=== PATIENT | female | born 1975 | race American Indian/Alaskan Native ===

== ENCOUNTER 2019-07-17 23:02 | Emergency (ER) | payer SELFPAY ==
[2019-07-17 23:15] VITALS: BP 146/83
[2019-07-17] MEDS ORDERED: predniSONE 20 MG TAB PO ONE (23:26)
[2019-07-17] MEDS ORDERED: IPRATROPIUM/ALBUTEROL SULFATE 3 ML AMPUL.NEB IH ONE (23:26)
--- NOTE | 2019-07-17 23:47 | XRay Report ---
CHEST 2 VIEWS, 07/17/2019 11:39 PM INDICATION: Cough COMPARISON: None FINDINGS: Support devices: None. Heart: The heart is normal in size. Lungs/pleura: The lungs are clear of focal airspace disease or significant pleural effusion. Additional findings: No significant acute abnormality. IMPRESSION: 1. No evidence of acute cardiopulmonary process. Signer Name: Moriah Olvera MD Signed: 07/17/2019 11:43 PM Workstation Name: [id number]
--- NOTE | 2019-07-18 00:03 | Emergency Department Report ---
ED Shortness of Breath HPI - General Chief Complaint: Dyspnea/Respdistress Stated Complaint: DIFFICULTY IN BREATHING Time Seen by Provider: 07/17/19 23:26 Source: patient Mode of arrival: Ambulatory Limitations: No Limitations - History of Present Illness Initial Comments: 43 yo F presents to ED w/ difficulty breathing after inhaling chemical fumes. Pt states she was cleaning her house using a mix of bleach and ammonia. Pt states when she inhaled the fumes, she began coughing uncontrollably. Reports pain with cough. MD Complaint: shortness of breath, cough -: This afternoon Severity: moderate Consistency: constant Improves With: nothing Worsens With: inspiration Context: smoke/fume exposure Associated Symptoms: cough - Related Data Previous Rx's Medication Instructions Recorded Last Taken Type Albuterol Sulfate [Proventil Hfa] 2 puff IH Q4HR PRN #1 hfa.aer.ad 07/18/19 Unknown Rx Benzonatate [Tessalon Perles] 100 mg PO Q8HR PRN #20 capsule 07/18/19 Unknown Rx predniSONE [Deltasone] 50 mg PO QDAY #5 tab 07/18/19 Unknown Rx Allergies Allergy/AdvReac Type Severity Reaction Status Date / Time No Known Allergies Allergy Unverified 07/17/19 23:14 ED Review of Systems ROS: Stated complaint: DIFFICULTY IN BREATHING Other details as noted in HPI Comment: All other systems reviewed and negative Constitutional: denies: fever Respiratory: cough, shortness of breath ED Past Medical Hx - Past Medical History Previous Medical History?: No - Surgical History Past Surgical History?: No - Social History Smoking Status: Current Every Day Smoker - Medications Home Medications: Home Medications Medication Instructions Recorded Confirmed Last Taken Type Albuterol Sulfate [Proventil Hfa] 2 puff IH Q4HR PRN #1 hfa.aer.ad 07/18/19 Unknown Rx Benzonatate [Tessalon Perles] 100 mg PO Q8HR PRN #20 capsule 07/18/19 Unknown Rx predniSONE [Deltasone] 50 mg PO QDAY #5 tab 07/18/19 Unknown Rx ED Physical Exam - General Limitations: No Limitations General appearance: alert, in no apparent distress - Head Head exam: Present: atraumatic, normocephalic - Eye Eye exam: Present: normal appearance - ENT ENT exam: Present: mucous membranes moist - Neck Neck exam: Present: normal inspection - Respiratory Respiratory exam: Present: normal lung sounds bilaterally. Absent: respiratory distress - Cardiovascular Cardiovascular Exam: Present: regular rate, normal rhythm - GI/Abdominal GI/Abdominal exam: Absent: distended - Extremities Exam Extremities exam: Present: normal inspection - Neurological Exam Neurological exam: Present: alert, oriented X3 - Psychiatric Psychiatric exam: Present: normal affect, normal mood - Skin Skin exam: Present: warm, dry, intact, normal color. Absent: rash ED Course Vital Signs 07/17/19 07/18/19 23:06 00:44 Temperature 98.2 F Pulse Rate 97 H Pulse Rate [ 95 H Anterior Bilateral Throughout] Respiratory 18 Rate Respiratory 20 Rate [Anterior Bilateral Throughout] Blood Pressure 146/83 O2 Sat by Pulse 98 Oximetry - Reevaluation(s) Reevaluation #1: 07/18/19 01:00 Pt feeling much better following meds. No resp distress. O2 sats normal. Will d/c home. ED Medical Decision Making - Radiology Data Radiology results: report reviewed, image reviewed - Medical Decision Making 43 yo F w/ cough, dyspnea after inhaling fumes while cleaning. Pt received prednisone and albuterol/atrovent nebs. Feeeling much better at this time. O2 sats normal. CXR unremrakable. Will d/c home w/ prescriptions. Return precautions given. - Differential Diagnosis pneumonitis Critical care attestation.: If time is entered above; I have spent that time in minutes in the direct care of this critically ill patient, excluding procedure time. ED Disposition Clinical Impression: Pneumonitis due to fumes and vapors Disposition: TO HOME OR SELFCARE Is pt being admited?: No Condition: Stable Instructions: Chemical Pneumonitis (ED) Prescriptions: predniSONE [Deltasone] 50 mg PO QDAY #5 tab Albuterol Sulfate [Proventil Hfa] 2 puff IH Q4HR PRN #1 hfa.aer.ad PRN Reason: Wheezing Benzonatate [Tessalon Perles] 100 mg PO Q8HR PRN #20 capsule PRN Reason: Cough Referrals: PRIMARY CARE, [Primary Care Provider] - 3-5 Days [facility] [Provider Group] - 3-5 Days Time of Disposition: :01
== END 2019-07-18 01:34 | disposition home or self-care (01) ==
LOC: ED 23:02
DX: J68.0 Bronchitis and pneumonitis due to chemicals, gases, fumes and vapors (principal)
CPT/HCPCS: 71046; 94644; 99284; J7512